=== PATIENT | female | born 1945 | race Caucasian/White ===

== ENCOUNTER 2016-08-31 06:42 | Inpatient (IN) | payer OTHER ==
[2016-08-01 10:07] VITALS: BMI 35.0
--- NOTE | 2016-08-01 10:43 | PAT Medication Instructions ---
Service Date August 01, 2016. Current Home Medication List Amlodipine (Norvasc), 5 MG PO QAM Atorvastatin (Lipitor), 40 MG PO QAM B-Complex Vitamins (Vitamin B Complex), 1 TAB PO QAM Bisoprolol Fumarate (Zebeta), 10 MG PO QAM Cholecalciferol (Vitamin D3), 1 TAB PO QAM Cholestyramine (Bulk) (Cholestyramine), 1 DOSE PO Q2D Citalopram Hydrobromide (Celexa), 40 MG PO HS Dicyclomine Hcl (Bentyl), 20 MG PO QID PRN for RN Lorazepam (Ativan), 1 MG PO PRN Losartan Potassium (Cozaar), 50 MG PO QAM Meloxicam (Mobic), 15 MG PO PRN Metformin Hcl (Glucophage), 500 MG PO QAM Omeprazole (Prilosec), 20 MG PO QAM Ranitidine (Zantac), 150 MG PO PRN [Celebrex], 1 DOSE PO UD [Ketoconazole 2% Sham], 1 DOSE TOP PRN Medication Instructions For Your Scheduled Surgery - Hold the following medications 48 hours prior to surgery: Metformin Hcl (Glucophage), 500 MG PO QAM - Hold the following medications 24 hours prior to surgery: [Ketoconazole 2% Sham], 1 DOSE TOP PRN - Hold the following medications the morning of surgery: B-Complex Vitamins (Vitamin B Complex), 1 TAB PO QAM Cholecalciferol (Vitamin D3), 1 TAB PO QAM Losartan Potassium (Cozaar), 50 MG PO QAM Dicyclomine Hcl (Bentyl), 20 MG PO QID PRN Cholestyramine (Bulk) (Cholestyramine), 1 DOSE PO Q2D Meloxicam (Mobic), 15 MG PO PRN [Celebrex], 1 DOSE PO UD - Take the following medications the morning of surgery with a sip of water OTHERWISE NOTHING TO EAT OR DRINK AFTER MIDNIGHT: Amlodipine (Norvasc), 5 MG PO QAM Atorvastatin (Lipitor), 40 MG PO QAM Bisoprolol Fumarate (Zebeta), 10 MG PO QAM Lorazepam (Ativan), 1 MG PO PRN Omeprazole (Prilosec), 20 MG PO QAM Ranitidine (Zantac), 150 MG PO PRN - Take the following medications as scheduled the night before surgery: Lorazepam (Ativan), 1 MG PO PRN Citalopram Hydrobromide (Celexa), 40 MG PO HS Dicyclomine Hcl (Bentyl), 20 MG PO QID PRN If you have any questions please call us at [phone] or [phone] or [phone]
--- NOTE | 2016-08-01 11:16 | DIAGNOSTIC IMAGING REPORT ---
CHEST PREADMISSION(PA/LAT) CLINICAL HISTORY: PAT preoperative evaluation COMPARISON STUDY: No previous studies for comparison. FINDINGS: The bones soft tissues and hemidiaphragms are normal. The cardiomediastinal silhouette is normal. The lungs are clear. The pulmonary vasculature is normal. IMPRESSION: Negative chest. Electronically signed by: Jorge Naik M.D. 08/01/2016 11:14 AM Dictated Date/Time: 08/01/2016 11:14 AM
[2016-08-01 11:18] LABS: URINE APPEARANCE CLEAR (CLEAR); URINE BILIRUBIN NEG (NEG); URINE COLOR DK YELLOW; URINE EPITHELIAL CELL AUTO >30 /lpf (0-5); URINE NITRITE NEG (NEG); URINE PH 5.5 (4.5-7.5); URINE SPECIFIC GRAVITY 1.026 (1.000-1.030); UROBILINOGEN NEG (NEG)
[2016-08-01 11:26] LABS: INR 0.9 (0.9-1.1); PARTIAL THROMBOPLASTIN RATIO 0.9; PROTHROMBIN TIME (PATIENT) 9.8 SECONDS (9.0-12.0)
[2016-08-01 11:33] LABS: MANUAL MICROSCOPIC REQUIRED? NO; REVIEW REQ? NO
--- NOTE | 2016-08-30 22:25 | HISTORY & PHYSICAL EXAMINATION ---
DATE OF ADMISSION: 08/31/2016 SUBJECTIVE CHIEF COMPLAINT: Right knee pain. HISTORY OF PRESENT ILLNESS: This is a patient who has been treated conservatively for right knee osteoarthritis. She has been treated with anti-inflammatory medications, physical therapy, bracing, corticosteroid injections and viscosupplement injections; however, she has failed all conservative management. She is now being set up for a right total knee arthroplasty. PAST MEDICAL HISTORY: Hypertension, diabetes, anxiety and depression, obesity, hyperlipidemia. ALLERGIES: DICLOFENAC AND COREG. PAST SURGICAL HISTORY: Shoulder surgery in 2013, partial hysterectomy in 1979 and a cholecystectomy. SOCIAL HISTORY: The patient denies tobacco use, has approximately 6 alcoholic drinks per week. FAMILY HISTORY: Noncontributory. CURRENT MEDICATIONS: Celexa 20 mg 1 p.o. daily, Ativan 1 mg 1 p.o. at bedtime p.r.n., Cozaar 50 mg 1 p.o. daily, metformin 500 mg 1 p.o. b.i.d., Zebeta 10 mg 1 p.o. daily, naproxen 500 mg 1 p.o. b.i.d., Zantac 150 mg 1 p.o. b.i.d., amlodipine 5 mg 1 p.o. daily, atorvastatin 40 mg 1 p.o. daily, dicyclomine 20 mg 1 p.o. q.i.d. p.r.n., Zyrtec 10 mg 1 p.o. daily, Vitamin D3 1000 units 2 p.o. daily, Astepro 0.15% nasal spray 2 sprays in each nostril daily, aspirin 81 mg 1 p.o. daily, Pataday 0.2% eyedrops 1 drop in each eye daily, valacyclovir 1 gram 2 tablets p.o. q. 12 hours as needed for cold sores, psorcon 0.05% topical cream apply to affected area b.i.d. p.r.n., Mobic 7.5 mg 1 p.o. daily. OBJECTIVE PHYSICAL EXAMINATION: GENERAL: The patient is alert and oriented x3. She is in no acute distress. She is a well-dressed, well-nourished 70-year-old female. Her affect is appropriate. CARDIOVASCULAR: Heart has a regular rhythm and rate without murmurs. LUNGS: Clear to auscultation bilateral. Dorsalis pedis, posterior tib pulse +2/4. Cap refill is less than 2 seconds. LYMPHATIC: No evidence of any swollen lymph nodes. MUSCULOSKELETAL: The patient has an antalgic gait favoring the right lower extremity. On inspection of the right lower extremity, the patient is noted to have swelling of the right knee. With palpation of the right knee, there is tenderness at the medial and lateral joint spaces. There is pain and crepitation noted with passive and active range of motion of the right knee. She has decreased range of motion secondary to pain. She also has decrease in strength right lower extremity secondary to pain. SKIN: There are no scars, rashes or ulcers noted. NEUROLOGIC: Sensation normal and intact distally. X-RAY EXAM: Multiple views of the right knee demonstrate severe tricompartmental osteoarthritis of the right knee with subchondral sclerosis and spurring. ASSESSMENT AND DIAGNOSIS: 1. Right knee osteoarthritis. PLAN: Above assessment was discussed with the patient. At this time, it was recommended the patient undergo a right knee total knee arthroplasty. All potential risks, benefits, complications, alternatives and rehab have been discussed with the patient. At this time, she wishes to proceed with the surgery as indicated. She will be scheduled for the surgery on 08/31/2016.
[~2016-08-31] VITALS: Ht 157.5 cm; Wt 87.0 kg
[2016-08-31] VITALS (8 sets, daily range): BP systolic 108–136; BP diastolic 66–76; PULSE 68–83; TEMP 36.4–36.8; O2SAT 95–98; Ht 157.5 cm; Wt 87.0 kg
[~2016-08-31 06:42] MED LIST: ACETAMINOPHEN 500 MG TAB PO SCH; AMLO-110 PO; ATOR-24 PO; ATV/1 PO; B-COTAB18 PO; BISO10TA PO; CEFAZOLIN 2000 MG/60 ML D5W IV SCH; CELEBREX PO; CHOL20007 PO; CHOLPOW PO; CITA40TA12 PO; CeleBREX 200 MG CAP PO SCH; DEXAMETHASONE 4 MG TAB PO SCH; DICY20TA35 PO; GABAPENTIN 300 MG CAP PO SCH; GLC/500 PO; KETOCONAZOLE 2% SHAM TOP; LACTATED RINGER'S 1000ML 1,000 ML IV SCH; LACTATED RINGER'S 1000ML 500 ML IV ONE; LOSA50TA6 PO; MELO7.5T5 PO; METOCLOPRAMIDE HCL 10 MG TAB PO SCH; PRLSR20 PO; ROPIVACAINE 5MG/ML 30 ML 150 MG, BUPIVACAINE/EPINEPHR 0.5% MPF 30 ML, KETOROLAC TROMETH... INFIL SCH; ZNTT/150 PO
[2016-08-31] MEDS ORDERED: MIDAZOLAM HCL 1 MG/ML 2ML VIAL ONE ×2 (06:59)
[2016-08-31] MEDS ORDERED: FENTANYL CITRATE INJ 50 MCG/1 ML 2 ML VIAL ONE (06:59)
[2016-08-31] MEDS ORDERED: NURSING VERBAL MED ORDER STA (07:30)
--- NOTE | 2016-08-31 07:31 | History & Physical Bridge Note ---
H&P Re-Evaluation Bridge Note: I have examined the patient, reviewed the History & Physical and in the interval since the performance of the History & Physical I have noted the following changes of clinical significance: No changes noted
[2016-08-31] MEDS ORDERED: BUPIVACAINE 0.25% 30 ML VIAL ONE (07:33)
[2016-08-31] MEDS ORDERED: BUPIVACAINE 0.5 % 5 MG/1 ML PF 10ML VIAL ONE (07:33)
[2016-08-31] MEDS ORDERED: HYDROmorphone INJ 1 MG/ML SYR IV PRN (07:45)
[2016-08-31] MEDS ORDERED: ONDANSETRON INJ 2 MG/ML 2 ML VIAL IV PRN ×2 (07:45→11:15)
[2016-08-31] MEDS ORDERED: ATROPINE SULFATE 0.1 MG/ML 5ML SYR IV PRN (07:45)
[2016-08-31] MEDS ORDERED: EpHEDrine SULFATE INJ 50 MG/ML AMP IV PRN (07:45)
[2016-08-31] MEDS ORDERED: ORTHO JOINT ANESTHETIC ONE (08:00)
[2016-08-31] MEDS ORDERED: POVIDONE-IODINE OP SOLN 30 ML BTL ONE (08:00)
[2016-08-31] MEDS ORDERED: TRANEXAMIC ACID INJ 1,000 MG in SODIUM CHLORIDE 0.9% 100ML 100 ML IV SCH (08:00)
[2016-08-31] MEDS ORDERED: BACITRACIN 50000 UNIT VIAL ONE (08:00)
[2016-08-31] MEDS ORDERED: DICYCLOMINE HCL 20 MG TAB PO PRN (08:45)
[2016-08-31] MEDS ORDERED: METFORMIN HCL 500 MG TAB PO SCH (09:00)
[2016-08-31] MEDS ORDERED: PROPOFOL IV EMULSION 10 MG/ML 20 ML VIAL IV ONE ×2 (09:34→10:10)
[2016-08-31] MEDS ORDERED: EpHEDrine SULFATE INJ 50 MG/ML AMP ONE (09:35)
--- NOTE | 2016-08-31 10:42 | [facility] Post Operative Brief Note ---
Immediate Operative Summary Operative Date Aug 31, 2016. Pre-Operative Diagnosis Right Knee Osteoarthritis, DJD Right Knee, Genu Varum Post-Operative Diagnosis Right Knee Osteoarthritis, DJD Right Knee, Genu Varum, LCL contracture Procedure(s) Performed Right Cemented Reilly and Nephew Total Knee Arthroplasty; Fractional Lengthening Lateral Collateral Ligament Surgeon Dr. Magaña Fine Patcher Surgeon(s) Mejia Mariscal PA-C Estimated Blood Loss 40 mL Findings See Dict Specimens A: Right Knee Bone and Tissue Drains Hemovac Anesthesia Spinal w/ sedation, Adductor canal block, Intraarticular Joint Injection Complication(s) None Disposition Recovery Room / PACU
--- NOTE | 2016-08-31 11:06 | OPERATIVE REPORT ---
DATE OF OPERATION: 08/31/2016 PREOPERATIVE DIAGNOSES: 1. Degenerative joint disease of the right knee. 2. Osteoarthritis, right knee. 3. Genu varum. POSTOPERATIVE DIAGNOSES: Same in addition to contracture of the lateral collateral ligament of the right knee. PROCEDURES: 1. Right cemented Reilly & Nephew total knee arthroplasty using a size 3 femur, size 3 tibia, 12 mm posterior stabilized polyethylene and a 32 mm patella. 2. Fractional lengthening of the lateral collateral ligament of the knee. SURGEON: Dr. Magaña. STEEL ERECTING PUSHER: Mejia Mariscal PA-C who was present for patient positioning, sterile prep and drape, management of retractors and instruments. He was present through the critical portions of the case including wound closure, application of sterile dressing and transport of the patient to recovery. ANESTHESIA: Spinal with sedation, adductor canal block and intraarticular joint injection. SPECIMENS: Bone and tissue from right knee. DRAINS: Hemovac. COMPLICATIONS: None. BLOOD LOSS: 40 mL. PERTINENT HISTORY: This is a 70-year-old female with chronic progressive ongoing symptoms consistent with degenerative joint disease. She attempted and failed conservative measures including anti-inflammatories, rest, intraarticular steroid injections, home exercises, observation, use of an assistive device and shoe wear modification. She had radiographs which demonstrated bone on bone arthropathy, marginal osteophytes, subchondral sclerosis and subchondral cysts. The patient is scheduled for elective total knee arthroplasty as indicated. All potential risks, benefits, complications, alternatives, rehab, potential for incomplete relief of symptoms, need for further surgery, DVT, PE, , persistent pain, swelling, scarring, weakness, neurovascular injury, wound compromise and failure of the hardware or bone fracture was discussed with the patient. The patient decided to proceed with the procedure as indicated. OPERATION AND FINDINGS: PROCEDURE: The patient was taken to the operative suite and placed supine on the operating table after spinal epidural was initiated. Next, tourniquet was placed high on the right thigh over cast padding and the patient was sedated. The right lower extremity was then sterilely prepped and draped in the usual fashion. It was elevated and exsanguinated with an Esmarch bandage and tourniquet inflated to 350 mmHg. Next, a 10-blade scalpel incision was made along the anterior midline of the right knee with incision deep through the subcutaneous tissue. Meticulous hemostasis was utilized with electrocautery. Full thickness skin flaps were developed both medially and laterally and 10-blade scalpel was used to make a medial parapatellar incision in the capsule and extensor. The patella was everted and soft tissue releases were performed. The medial collateral was noted to be slightly tight so this was partially released using pie-crusting technique and the Remy elevator was placed from the posterior aspect of the capsule releasing any contracture. Next, the patella was everted and resurfaced using the sagittal saw and orthogonal cuts. After caliper measured 23 mm, residual patella was approximately 15 mm and 32 mm button trial was drilled and then trialed. Next, the appropriate retractors were placed and the femoral patient matched cutting block was pinned to the distal aspect of the femur. The distal femoral cut was made and pinned with pins and the distal femoral cutting guide was removed. The 4-in-1 cutting block was then pinned in place and anterior, posterior, anterior chamfer, and posterior chamfer cuts were made. Block and bone fragments were then removed followed by exposure of the proximal tibia. Sharp Hohmann was used to place just posterior to the tibia to protract it. Medial and lateral sharp Hohmann's were placed to protect the soft tissue and the tibial cutting block was then pinned in place. Tibial alignment terrell was utilized to confirm alignment and the proximal tibia was then cut made with sagittal saw. Fragment was removed. The size 8 tibial trial was pinned in place and circumferential proximal release was performed with electrocautery around the proximal tibia. Next, the femoral trial was placed within appropriate medial and lateral alignment and then the cutting block was then put into place. It was reamed and box cut was performed. Excess debris was removed from the femoral notch. The insert was placed into the distal aspect of the femur. Trial poly size 12 mm was placed in the proximal tibia. The knee was reduced. Trial poly size 32 mm was placed in the patella. The knee was reduced. The lateral collateral ligament was noted to be contracted both in extension and flexion. Therefore, a fractional lengthening was performed with an 18 gauge spinal needle which was used to make multiple small passes of the spinal needle through the lateral collateral ligament to perform a progressive fractional lengthening until the knee joint was balanced. Next, a 12 mm posterior stabilized polyethylene was then inserted and the knee was noted to be balanced both in flexion and extension with no evidence of mid flexion instability. Excellent alignment and range of motion was achieved with correction of the genu varum and flexion contracture was achieved. Next, all components were removed. The Orthomix was injected into the posterior capsule, anterior aspect of the capsule and throughout the knee. Next, the wound was lavaged with pulsatile lavage and all surfaces were suctioned and dried. Palacos-G cement was placed in the distal femur, proximal tibia, patella, and then a small amount was placed in the canal of the tibia. All implants were impacted into place in a stable fashion. Excess cement was removed from the joint. The patellar button was cemented and clamped in place. A soultion of dilute betadine was used to soak the incision and components for 2 minutes and then suctioned. After sufficient drying time elapsed a 10-Slovenian double lumen Hemovac drain was placed in the anterolateral aspect of the knee. The extensor mechanism was closed using interrupted #1 Vicryl. The dermis was closed using buried interrupted 2-0 Vicryl. The skin was closed with skin sharlene. Sterile compressive dressing from the toes to the groin was applied. The tourniquet was released. The patient was awakened and taken to the recovery room in stable condition. I attest to the content of the Intraoperative Record and any orders documented therein. Any exceptions are noted below. DEYANIRA
--- NOTE | 2016-08-31 11:13 | Discharge Instructions ---
Discharge Instructions Date of Service Aug 31, 2016. Admission Reason for Admission: Right Knee Osteoarthritis Discharge Discharge Diagnosis / Problem: right knee osteoarthritis Discharge Goals Goal(s): Decrease discomfort, Improve function Activity Recommendations Activity Limitations: per Instructions/Follow-up section Weightbearing Status: Right weightbearing (as tolerated) . Instructions / Follow-Up Instructions / Follow-Up ACTIVITY RECOMMENDATIONS: SELF CARE INSTRUCTIONS AFTER TOTAL KNEE REPLACEMENT A. You may need to continue a physical therapy program after discharge from the hospital. There are several options available to you. Your doctor will assist you in selecting the best one for you. 1. An out-patient facility 2 to 3 times a week for therapy or home therapy. 2. Continue working on all exercises taught to you in the hospital. Your goals should be to increase bending of your knee to 90 degrees and beyond and to fully straighten your knee. B. You may progress at your own pace from walking with a walker or crutches to a cane; then to no assistive devices. C. Make walking a part of your daily routine. Be up as much as comfortable with rest periods throughout the day. Rest with leg elevation is very important. Use the ice wrap frequently for the first 3-4 weeks. D. There are no restrictions on activities. You may ride in a car, shop, participate in freelance patternmaker and all social activities. E. Wear the long elastic stockings (MARY hose) 20 hours a day for one month after surgery. They can be removed several times a day for laundering and for a bath. F. Silverlon- This is a large adhesive bandage that contains silver ions. This helps your incision heal by fighting off bacteria and protecting it from the outside environment. You are permitted to shower with this dressing. This will remain on your incision for 7 days and then should be removed. Some visible blood or drainage through the dressing window is normal. If there is significant drainage or leaking noted before the 7 days notify your doctor's office immediately. Once removed, keep incision clean and dry. If there is any drainage or redness noted, please call your surgeon. SPECIAL CARE INSTRUCTIONS: VERY IMPORTANT TO READ AND REVIEW A. Take Aspirin (blood thinning medications) as directed by your doctor. If on Coumadin, have a pro-time (blood test) drawn according to your doctor's instructions. This will tell the doctor how well the Coumadin is thinning your blood. B. There are a few signs you need to watch for after you are home. Call [facility] if you notice any of the followin. Increased severe knee pain. Some pain is expected especially when you exercise. 2. Increased swelling in your leg or knee; pain or swelling of the calf muscle in either lower leg. 3. Any fluid drainage from the incision. 4. Shortness of breath or chest pain. C. Please call [facility] at if you have any concerns or questions about your operation or recovery. The doctor or his nurse will return your call promptly. D. You must take antibiotics before dental work, bladder, bowel or other surgery. Your doctor will provide you with a permanent care to carry describing this precaution. * CALL IF INCREASED PAIN, REDNESS, DRAINAGE OR FEVER GREATER THAT 101 F. * WEAR MARY HOSE 20 HOURS PER DAY FOR 4 WEEKS. FOLLOW UP VISIT: If appointment is not already scheduled: Please call [facility] to make a follow-up appointment for 2 weeks after your surgery to have sharlene removed at . Current Hospital Diet Patient's current hospital diet: Regular Diet Discharge Diet Recommended Diet: Regular Diet Procedures Procedures Performed: Right Cemented Reilly and Nephew Total Knee Arthroplasty; Fractional Lengthening Lateral Collateral Ligament Pending Studies Studies pending at discharge: no Medical Emergencies . Who to Call and When: Medical Emergencies: If at any time you feel your situation is an emergency, please call 911 immediately. . Non-Emergent Contact Non-Emergency issues call your: Surgeon Call Non-Emergent contact if: temperature is above 101, your pain is not controlled, your pain is worsening, wound has increased drainage, wound has increased redness, wound has increased pain . "Provider Documentation" section prepared by Mejia Mariscal. . VTE Core Measure Inpt VTE Proph given/why not?: Other Anticoagulation, T.E.D. Stockings, SCD's
[2016-08-31] MEDS ORDERED: MAGNESIUM HYDROXIDE SUSP 30 ML UDC PO PRN (11:15)
[2016-08-31] MEDS ORDERED: ALUMINUM/MAGNESIUM/SIMETH (MAALOX MAX) 30 ML UDC PO PRN (11:15)
[2016-08-31] MEDS ORDERED: BISACODYL 10 MG SUPP PR PRN (11:15)
[2016-08-31] MEDS ORDERED: ZOLPIDEM TARTRATE 5 MG TAB PO PRN (11:15)
[2016-08-31] MEDS ORDERED: MoRPHine SULFATE 2 MG/ML CARP IV PRN (11:15)
[2016-08-31] MEDS ORDERED: SOD PHOSPHATE/SOD BIPHOSPHATE ENEMA 132 ML BTL PR PRN (11:15)
--- NOTE | 2016-08-31 11:43 | DIAGNOSTIC IMAGING REPORT ---
RIGHT KNEE 1 OR 2 VIEWS ROUTINE CLINICAL HISTORY: Postoperative evaluation. COMPARISON: None FINDINGS: Alignment of the total right knee arthroplasty is anatomic. There is no fracture or unexpected radiopaque foreign body. Drains and skin sharlene are present. IMPRESSION: Expected findings following total right knee arthroplasty. Electronically signed by: Faizan Garcia M.D. 08/31/2016 11:42 AM Dictated Date/Time: 08/31/2016 11:42 AM
--- NOTE | 2016-08-31 11:57 | Anesthesiology Progress Note ---
Anesthesia Post Op Note Date & Time Aug 31, 2016 at 11:57 Vital Signs Pain Intensity: 0 Vital Signs Past 12 Hours Date Time Temp Pulse Resp B/P (MAP) Pulse Ox O2 Delivery O2 Flow Rate FiO2 08/31/16 11:45 79 15 120/62 97 Nasal Cannula 2 08/31/16 11:35 36.6 86 13 126/64 97 Nasal Cannula 2 08/31/16 11:25 85 19 108/62 98 Nasal Cannula 2 08/31/16 11:15 83 14 118/65 96 Nasal Cannula 2 08/31/16 11:06 36.4 90 20 132/64 96 Nasal Cannula 2 08/31/16 07:10 36.8 68 18 136/67 97 Room Air Notes Mental Status: alert / awake / arousable, participated in evaluation Pt Amnestic to Procedure: Yes Nausea / Vomiting: adequately controlled Pain: adequately controlled Airway Patency, RR, SpO2: stable & adequate BP & HR: stable & adequate Hydration State: stable & adequate Anesthetic Complications: no major complications apparent
[2016-08-31] MEDS: D5W AND 1/2NSS + 20MEQ KCL 1,000 ML IV SCH ×2 (13:54→23:47)
[2016-08-31] MEDS ORDERED: GLUCOSE 10 TABS/TUBE PO PRN (14:00)
[2016-08-31] MEDS ORDERED: GLUCAGON FOR INJ 1 MG VIAL SQ PRN (14:00)
[2016-08-31] MEDS ORDERED: DEXTROSE 50% 50 ML SYR IV PRN (14:00)
[2016-08-31] MEDS ORDERED: GLUCOSE 40% GEL 15 GM TUBE PO PRN (14:00)
[2016-08-31] MEDS ORDERED: NURSING VERBAL MED ORDER ONE (14:15)
[2016-08-31] MEDS: KETOROLAC TROMETHAMINE 15 MG/ML VIAL IV. SCH ×2 (14:16→20:11)
[2016-08-31] MEDS: ACETAMINOPHEN 500 MG TAB PO SCH ×2 (14:16→21:12)
[2016-08-31] MEDS ORDERED: LORAZEPAM 1 MG TAB PO PRN (14:45)
[2016-08-31] MEDS ORDERED: RANITIDINE HCL 150 MG TAB PO PRN (15:30)
[2016-08-31] MEDS: CEFAZOLIN IV 2,000 MG in DEXTROSE 5% 50ML 50 ML IV SCH ×2 (16:29→23:48)
[2016-08-31] MEDS: INSULIN ASPART 100 UNITS/ML 3 ML PEN SC SCH ×2 (17:44→21:20)
[2016-08-31] MEDS: OXYCODONE HCL 10 MG TABCR (OXYCONTIN) PO SCH (21:11)
[2016-08-31] MEDS: CITALOPRAM 40 MG TAB PO SCH (21:12)
[2016-08-31] MEDS: ASPIRIN 81 MG ECTAB PO SCH (21:42)
[2016-08-31] MEDS: SENNA 8.6 MG TAB PO SCH (21:42)
[2016-08-31] MEDS: DOCUSATE SODIUM 100 MG CAP PO SCH (21:43)
--- NOTE | 2016-08-31 23:45 | Medical Consult ---
Consultation Date of Consultation: Aug 31, 2016. Attending Physician: Rock Magaña D.O. Reason for Consultation: post-op medical management History of Present Illness 70 yo F who failed conservative therapy for right knee OA presents today for elective right total knee arthroplasty. She tolerated the procedure well with no pain or nausea, and just had lunch. She denies any numbness in her foot and is overall doing well. Medications were reviewed as well as procedures for insulin use post-operatively and she verbalized understanding. Past Medical/Surgical History Medical Problems: (1) Anxiety and depression Status: Chronic (2) DMII (diabetes mellitus, type 2) Status: Chronic (3) GERD (gastroesophageal reflux disease) Status: Chronic (4) HTN (hypertension) Status: Chronic (5) Hyperlipidemia Status: Chronic (6) IBS (irritable bowel syndrome) Status: Chronic (7) Obesity (BMI 30-39.9) Status: Chronic (8) Osteoarthritis of right knee Status: Chronic Surgical Problems: (1) H/O shoulder surgery Status: Chronic (2) History of cholecystectomy Status: Chronic (3) History of tonsillectomy and adenoidectomy Status: Chronic (4) S/P JORDY (total abdominal hysterectomy) Status: Chronic Family History Cancer of larynx FATHER FH: CAD (coronary artery disease) MOTHER (83 yrs) Social History Smoking Status: Never Smoker Smokeless Tobacco Use: No Alcohol Use: none Drug Use: none Marital Status: Housing Status: lives with significant other Occupation Status: retired Allergies Coded Allergies: Carvedilol (Verified Allergy, Unknown, HIVES, 08/31/16) Diclofenac (Verified Allergy, Unknown, per PCP records -- takes meloxicam at home, 08/31/16) Home Medications Active Reported [Celebrex] 1 Dose PO UD NEW RX-HASN'T FILLED YET Bentyl (Dicyclomine Hcl) 20 Mg Tab 20 Mg PO QID PRN Mobic (Meloxicam) 7.5 Mg Tab 15 Mg PO PRN [Ketoconazole 2% Sham] 1 Dose TOP PRN Cozaar (Losartan Potassium) 50 Mg Tab 50 Mg PO QAM Norvasc (Amlodipine Besylate) 5 Mg Tab 5 Mg PO QAM Prilosec (Omeprazole) 20 Mg Capcr 20 Mg PO QAM Zantac (Ranitidine HCl) 150 Mg Tab 150 Mg PO PRN Celexa (Citalopram Hydrobromide) 40 Mg Tab 40 Mg PO HS Ativan (Lorazepam) 1 Mg Tab 1 Mg PO PRN Vitamin B Complex (B-Complex Vitamins) 1 Tab Tab 1 Tab PO QAM Vitamin D3 (Cholecalciferol) 2,000 Unit Tab 1 Tab PO QAM 90 Days Lipitor (Atorvastatin Calcium) 40 Mg Tab 40 Mg PO QAM Zebeta (Bisoprolol Fumarate) 10 Mg Tab 10 Mg PO QAM Cholestyramine (Cholestyramine (Bulk)) 1 Pow Pow 1 Dose PO Q2D AM Glucophage (Metformin Hcl) 500 Mg Tab 500 Mg PO QAM Current Inpatient Medications Current Inpatient Medications Medications (Trade) Dose Ordered Sig/Sully Route Start Time Stop Time Status Last Admin Dose Admin Amlodipine Besylate (Norvasc Tab) 5 mg QAM PO 09/01/16 09:00 10/01/16 08:59 Atorvastatin Calcium (Lipitor Tab) 40 mg QAM PO 09/01/16 09:00 10/01/16 08:59 Citalopram Hydrobromide (celeXA TAB) 40 mg HS PO 08/31/16 21:00 09/30/16 20:59 Dicyclomine HCl (Bentyl Tab) 20 mg QID PRN PO 08/31/16 08:45 09/30/16 08:44 Miscellaneous Information (Order Awaiting Action) 1 ea QS N/A 08/31/16 16:00 09/30/16 15:59 Losartan Potassium (coZAAR TAB) 50 mg QAM PO 09/01/16 09:00 10/01/16 08:59 Miscellaneous Information (Order Awaiting Action) 1 ea QS N/A 08/31/16 16:00 09/30/16 15:59 Vitamin B Complex (Vitamin B Complex) 1 tab DAILY PO 09/01/16 09:00 10/01/16 08:59 Bisoprolol Fumarate (Bisoprolol Fumarate) 10 mg QAM PO 09/01/16 09:00 10/01/16 08:59 Cholecalciferol (Vitamin D Tab) 2,000 inter.unit QAM PO 09/01/16 09:00 10/01/16 08:59 Cholestyramine Resin (Questran Powder Light) 4 gm Q2D@0900 PO 09/01/16 09:00 10/01/16 08:59 Pantoprazole Sodium (Protonix Tab) 40 mg QAM PO 09/01/16 09:00 10/01/16 08:59 Miscellaneous Information (Order Awaiting Action) 1 ea QS N/A 08/31/16 16:00 09/30/16 15:59 Potassium Chloride/Dextrose/ Sod Cl 1,000 ml @ 100 mls/hr Q10H IV 08/31/16 13:30 09/01/16 11:03 08/31/16 13:54 100 MLS/HR Cefazolin Sodium 2000 mg/Dextrose 60 ml @ 100 mls/hr Q8H IV 08/31/16 16:00 09/01/16 00:35 Ketorolac Tromethamine (Toradol Inj) 15 mg Q6H IV. 08/31/16 14:00 09/01/16 11:14 Celecoxib (CeleBREX CAP) 200 mg BID PO 09/01/16 21:00 10/01/16 20:59 Oxycodone HCl (Roxicodone Immediate Rel Tab) 1 TABLET FOR PAIN RATING... Q4H PRN PO 08/31/16 11:15 09/14/16 11:14 Oxycodone HCl (Oxycontin Tab) 10 mg Q12 PO 08/31/16 21:00 09/14/16 20:59 Morphine Sulfate (MoRPHine SULFATE INJ) 2 mg Q1HWA PRN IV 08/31/16 11:15 09/14/16 11:14 Acetaminophen (Tylenol Tab) 1,000 mg Q8H PO 08/31/16 14:00 09/30/16 11:14 Magnesium Hydroxide (Milk Of Magnesia Susp) 30 ml Q6H PRN PO 08/31/16 11:15 09/30/16 11:14 Bisacodyl (Dulcolax Supp) 10 mg DAILY PRN NH 08/31/16 11:15 09/30/16 11:14 Sodium Biphosphate/ Sodium Phosphate (Fleet Enema) 132 ml DAILY PRN NH 08/31/16 11:15 09/30/16 11:14 Senna (Senokot Tab) 17.2 mg HS PO 08/31/16 21:00 09/30/16 20:59 Docusate Sodium (coLACE CAP) 100 mg BID PO 08/31/16 21:00 09/30/16 20:59 Diphenhydramine HCl (Benadryl Cap) 25 mg Q8H PRN PO 08/31/16 11:15 09/30/16 11:14 Al Hydrox/Mg Hydrox/Simethicone (Maalox Max Susp) 15 ml Q4H PRN PO 08/31/16 11:15 09/30/16 11:14 Zolpidem Tartrate (Ambien Tab) 5 mg HSZ PRN PO 08/31/16 11:15 09/30/16 11:14 Multivitamins (Multivitamin Tab) 1 tab QAM PO 09/01/16 09:00 10/01/16 08:59 Ondansetron HCl (Zofran Inj) 4 mg Q6H PRN IV 08/31/16 11:15 09/30/16 11:14 Dexamethasone Sodium Phosphate 10 mg/Syringe 2.5 ml @ 1 mls/min TODAY@0730 IV 09/01/16 07:30 09/01/16 07:33 Aspirin (Ecotrin Tab) 81 mg BID PO 08/31/16 21:00 09/30/16 20:59 Review of Systems Ten systems were reviewed and negative except as indicated in HPI. Physical Exam Date Time Temp Pulse Resp B/P (MAP) Pulse Ox O2 Delivery O2 Flow Rate FiO2 08/31/16 13:04 36.8 81 18 119/72 (88) 97 Nasal Cannula 2.0 08/31/16 12:32 36.4 81 17 116/67 (83) 98 Room Air 08/31/16 12:00 96 Nasal Cannula 2.0 08/31/16 12:00 96 Nasal Cannula 2.0 08/31/16 12:00 36.6 83 16 126/76 (93) 96 Nasal Cannula 2.0 08/31/16 11:45 79 15 120/62 97 Nasal Cannula 2 08/31/16 11:35 36.6 86 13 126/64 97 Nasal Cannula 2 08/31/16 11:25 85 19 108/62 98 Nasal Cannula 2 08/31/16 11:15 83 14 118/65 96 Nasal Cannula 2 08/31/16 11:06 36.4 90 20 132/64 96 Nasal Cannula 2 08/31/16 07:10 36.8 68 18 136/67 97 Room Air GEN: WNWD, in no acute distress, alert and appropriate HEENT: NC/AT, pupils equal and round, normal sclerae/conjunctivae, MMM NECK: small biopsy site well-healed at base of right neck. CARDIO: reg rate, S1/2 heard without m/g/r LUNGS: CTA bilaterally, no crackles, rales or wheezes, good diaphragmatic excursion ABD: soft, non-tender, non-distended, no rebound or guarding, +BS EXTREMITY: RP and DP palpable 2+ bilat, no LE swelling or edema, extremities are warm and well-perfused, deonna wrap to right knee, drain in place/ice pack over wrap, R leg NVI NEURO: CN 2-12 grossly intact, sensation intact throughout MUSC: 5/5 strength throughout, no focal deficits SKIN: warm and dry Laboratory Results Test 08/01/16 00:00 08/01/16 10:51 08/31/16 07:30 08/31/16 20:52 Urine Color DK YELLOW Urine Appearance CLEAR (CLEAR) Urine pH 5.5 (4.5-7.5) Urine Specific [place] 1.026 (1.000-1.030) Urine Protein NEG (NEG) Urine Glucose (UA) NEG (NEG) Urine Ketones TRACE (NEG) Urine Occult Blood NEG (NEG) Urine Nitrite NEG (NEG) Urine Bilirubin NEG (NEG) Urine Urobilinogen NEG (NEG) Urine Leukocyte Esterase SMALL (NEG) Urine WBC (Auto) 5-10 /hpf (0-5) Urine RBC (Auto) 0-4 /hpf (0-4) Urine Hyaline Casts (Auto) 5-10 /lpf (0-5) Urine Epithelial Cells (Auto) >30 /lpf (0-5) Urine Bacteria (Auto) NEG (NEG) Prothrombin Time 9.8 SECONDS (9.0-12.0) Prothromb Time International Ratio 0.9 (0.9-1.1) Activated Partial Thromboplast Time 24.0 SECONDS (21.0-31.0) Partial Thromboplastin Ratio 0.9 Albumin 3.5 gm/dl (3.4-5.0) Bedside Glucose 150 mg/dl (70-90) Last 24 Hours Test 08/31/16 07:07 08/31/16 07:30 08/31/16 11:11 Bedside Glucose 114 mg/dl 139 mg/dl Albumin 3.5 gm/dl Assessment & Plan 70 yo F with MMPs s/p knee surgery; IM consult for medical management 1. s/p R total knee arthroscopy -POD 0; surgery performed by Dr. Magaña -post-operative pain well managed -monitor for acute blood loss with daily H&H -pt encouraged to utilize spirometry to prevent post-op infection -PT/OT -activity and wound care orders per ortho protocol -will continue to follow 2. HTN-controlled, cont Cozaar 50, Bisoprolol 10, and good post-op pain control 3. Depression-cont Celexa and PRN Ativan 4. GERD-cont protonix and PRN ranitidine 5. Metabolic syndrome-ISS with carb coverage while off the metformin. This is in an effort to keep sugars tightly regulated for better healing post-op. Plan to transfer her back on metformin when she is discharged. DVT Prophylaxis: ASA 81 BID per Ortho (no h/o post-op DVT in the past) FULL CODE Dispo-per Ortho Thank you for this consultation. We will follow the patient with you during their hospital stay. You can reach a member of the [facility] Hospitalist Team 22/10 via pager @ [phone]. Paulette Leong, [facility] Center[facility]
[2016-09-01] MEDS: KETOROLAC TROMETHAMINE 15 MG/ML VIAL IV. SCH ×2 (02:03→08:13)
[2016-09-01 03:15] VITALS: BP 113/65; PULSE 75; TEMP 36.6; O2SAT 96
[2016-09-01] MEDS: ACETAMINOPHEN 500 MG TAB PO SCH ×3 (05:32→21:18)
[2016-09-01 05:53] LABS: HEMATOCRIT 35.9 % (37-47); MEAN CELL VOLUME 92.5 fL (80-100); MEAN CORPUSCULAR HEMOGLOBIN 30.7 pg (25-34); MEAN CORPUSCULAR HGB CONC 33.1 g/dl (32-36); MEAN PLATELET VOLUME 10.4 fL (7.4-10.4); PLATELET COUNT 166 K/uL (130-400); RED BLOOD COUNT 3.88 M/uL (4.2-5.4); WHITE BLOOD COUNT 13.47 K/uL (4.8-10.8)
[2016-09-01 06:24] LABS: BUN/CREATININE RATIO 14.8 (10-20); CALCIUM 8.6 mg/dl (8.5-10.1); CREATININE 0.89 mg/dl (0.60-1.20); POTASSIUM 5.5 mmol/L (3.5-5.1)
[2016-09-01] MEDS: OXYCODONE HCL IR 5 MG TAB (IMMEDIATE RELEASE) PO PRN ×3 (06:29→18:44)
[2016-09-01] MEDS ORDERED: DEXAMETHASONE INJ 10 MG in SYRINGE 0 ML IV SCH (07:30)
--- NOTE | 2016-09-01 07:50 | Orthopedic Progress Note ---
Orthopedic Progress Note Date of Service Sep 01, 2016. Subjective Post OP Day: 1 Reports: feeling well Objective N/V intact, dressing C/D/I (Hemovac in place), toes mobile (mild footdrop noted on operative side) Date Time Temp Pulse Resp B/P (MAP) Pulse Ox O2 Delivery O2 Flow Rate FiO2 09/01/16 03:15 36.6 75 16 113/65 (81) 96 Room Air 08/31/16 23:50 Room Air 08/31/16 22:55 36.7 82 16 122/69 (86) 95 Room Air 08/31/16 19:37 36.8 74 16 108/68 (81) 95 Room Air 08/31/16 16:20 Nasal Cannula 1.0 08/31/16 14:56 72 16 113/66 (82) 95 08/31/16 14:01 36.5 73 16 122/68 (86) 97 Nasal Cannula 2.0 08/31/16 13:04 36.8 81 18 119/72 (88) 97 Nasal Cannula 2.0 08/31/16 12:32 36.4 81 17 116/67 (83) 98 Room Air 08/31/16 12:00 96 Nasal Cannula 2.0 08/31/16 12:00 96 Nasal Cannula 2.0 08/31/16 12:00 36.6 83 16 126/76 (93) 96 Nasal Cannula 2.0 08/31/16 11:45 79 15 120/62 97 Nasal Cannula 2 08/31/16 11:35 36.6 86 13 126/64 97 Nasal Cannula 2 08/31/16 11:25 85 19 108/62 98 Nasal Cannula 2 08/31/16 11:15 83 14 118/65 96 Nasal Cannula 2 08/31/16 11:06 36.4 90 20 132/64 96 Nasal Cannula 2 Laboratory Results 24 Hours: Test 09/01/16 05:15 Hematocrit 35.9 % Hemoglobin 11.9 g/dL Assessment & Plan Assessment: 70 yo female stable POD #1 s/p right TKA, mild footdrop Plan: 1. Med management 2. DVT prophylaxis- ASA, TEDs, SCDs 3. PT/OT 4. D/C planning- home w/ HH
[2016-09-01 08:18] VITALS: BP 112/70; PULSE 67; TEMP 36.8; O2SAT 96
[2016-09-01 08:36] VITALS: O2SAT 96
[2016-09-01] MEDS ORDERED: CHOLESTYRAMINE LIGHT 4 GM PKT PO SCH (09:00)
[2016-09-01] MEDS: ASPIRIN 81 MG ECTAB PO SCH ×2 (09:19→21:22)
[2016-09-01] MEDS: PANTOprazole SOD 40 MG TAB PO SCH (09:20)
[2016-09-01] MEDS: BISOPROLOL FUMARATE 10 MG TAB PO SCH (09:20)
[2016-09-01] MEDS: AMLODIPINE BESYLATE 5 MG TAB PO SCH (09:20)
[2016-09-01] MEDS: ATORVASTATIN 20 MG TAB PO SCH (09:20)
[2016-09-01] MEDS: VITAMIN B COMPLEX TAB PO SCH (09:21)
[2016-09-01] MEDS: CHOLECALCIFEROL 1000 INTER.UNIT TAB PO SCH (09:21)
[2016-09-01] MEDS: DOCUSATE SODIUM 100 MG CAP PO SCH ×2 (09:21→19:06)
[2016-09-01] MEDS: LOSARTAN POTASSIUM 50 MG TAB PO SCH (09:22)
[2016-09-01] MEDS: INSULIN ASPART 100 UNITS/ML 3 ML PEN SC SCH ×4 (09:29→21:00)
[2016-09-01] MEDS: OXYCODONE HCL 10 MG TABCR (OXYCONTIN) PO SCH ×2 (09:31→21:17)
--- NOTE | 2016-09-01 10:32 | Progress Note ---
Internal Med Progress Note Date of Service: Sep 01, 2016. Provider Documentation: SUBJECTIVE: The patient was seen and examined Denies any symptoms Has some pain in right knee OBJECTIVE: Vital Signs-as noted below Exam: General-no distress at rest Eyes-normal ENT-normal Neck-supple Lungs-Clear to auscultate bilaterally Heart-Regular,no murmur appreciated Abdomen-Benign,no masses,bowel sound present Extremities-Trace edema on right Right Knee is bandaged Neuro-AAox3 Lab data as noted below. ASSESSMENT & PLAN: s/p R total knee arthroscopy -POD 1: surgery performed by Dr. Magaña -activity and wound care orders per ortho protocol High Potassium Is on IVF with K Discontinued Recheck at 1700 HTN-controlled, cont Cozaar 50, Bisoprolol 10, and good post-op pain control Remains controlled Depression-cont Celexa and PRN Ativan GERD-cont protonix and PRN ranitidine Metabolic syndrome-ISS with carb coverage while off the metformin. SSI DVT Prophylaxis: ASA 81 BID per Ortho (no h/o post-op DVT in the past) FULL CODE Dispo-per Ortho Medically stable Vital Signs: Date Time Temp Pulse Resp B/P (MAP) Pulse Ox O2 Delivery O2 Flow Rate FiO2 09/01/16 15:45 Room Air 09/01/16 15:06 36.7 70 15 120/80 (93) 97 Room Air 09/01/16 11:40 36.7 68 16 122/80 (94) 97 Room Air 09/01/16 08:36 96 Room Air 09/01/16 08:18 36.8 67 14 112/70 (84) 96 Room Air 09/01/16 03:15 36.6 75 16 113/65 (81) 96 Room Air 08/31/16 23:50 Room Air 08/31/16 22:55 36.7 82 16 122/69 (86) 95 Room Air 08/31/16 19:37 36.8 74 16 108/68 (81) 95 Room Air Lab Results: Results Past 24 Hours Test 08/31/16 17:07 08/31/16 20:52 09/01/16 05:15 09/01/16 08:14 Range/Units Bedside Glucose 202 150 141 70-90 mg/dl White Blood Count 13.47 4.8-10.8 K/uL Red Blood Count 3.88 4.2-5.4 M/uL Hemoglobin 11.9 12.0-16.0 g/dL Hematocrit 35.9 37-47 % Mean Corpuscular Volume 92.5 80-100 fL Mean Corpuscular Hemoglobin 30.7 25-34 pg Mean Corpuscular Hemoglobin Concent 33.1 32-36 g/dl RDW Standard Deviation 44.0 36.4-46.3 fL RDW Coefficient of Variation 13.1 11.5-14.5 % Platelet Count 166 130-400 K/uL Mean Platelet Volume 10.4 7.4-10.4 fL Sodium Level 143 136-145 mmol/L Potassium Level 5.5 3.5-5.1 mmol/L Chloride Level 109 98-107 mmol/L Carbon Dioxide Level 30 21-32 mmol/L Anion Gap 4.0 3-11 mmol/L Blood Urea Nitrogen 13 7-18 mg/dl Creatinine 0.89 0.60-1.20 mg/dl Est Creatinine Clear Calc Drug Dose 62.0 ml/min Estimated GFR () 77.2 Estimated GFR (Non- 66.6 BUN/Creatinine Ratio 14.8 10-20 Random Glucose 175 70-99 mg/dl Calcium Level 8.6 8.5-10.1 mg/dl Test 09/01/16 12:31 Range/Units Bedside Glucose 134 70-90 mg/dl
[2016-09-01] MEDS ORDERED: SODIUM CHLORIDE 0.9% 1000ML 1,000 ML IV SCH (10:45)
[2016-09-01 11:40] VITALS: BP 122/80; PULSE 68; TEMP 36.7; O2SAT 97
[2016-09-01] MEDS: MULTIVITAMIN TAB PO SCH (12:22)
[2016-09-01 15:06] VITALS: BP 120/80; PULSE 70; TEMP 36.7; O2SAT 97
[2016-09-01 17:50] LABS: BUN/CREATININE RATIO 17.5 (10-20); CALCIUM 9.1 mg/dl (8.5-10.1); CREATININE 0.88 mg/dl (0.60-1.20); POTASSIUM 4.9 mmol/L (3.5-5.1)
[2016-09-01] MEDS: SENNA 8.6 MG TAB PO SCH (19:06)
[2016-09-01] MEDS: CeleBREX 200 MG CAP PO SCH (21:20)
[2016-09-01] MEDS: CITALOPRAM 40 MG TAB PO SCH (21:22)
[2016-09-01 22:52] VITALS: BP 133/69; PULSE 67; TEMP 36.5; O2SAT 97
[2016-09-02] MEDS: ACETAMINOPHEN 500 MG TAB PO SCH (05:54)
[2016-09-02 06:51] VITALS: BP 128/70; PULSE 55; TEMP 36.6; O2SAT 97
--- NOTE | 2016-09-02 07:46 | Orthopedic Progress Note ---
Orthopedic Progress Note Date of Service Sep 02, 2016. Subjective Post OP Day: 2 Reports: feeling well Objective calves soft nontender, N/V intact, dressing C/D/I (Silverlon in place), toes mobile Date Time Temp Pulse Resp B/P (MAP) Pulse Ox O2 Delivery O2 Flow Rate FiO2 09/02/16 06:51 36.6 55 16 128/70 (89) 97 Room Air 09/01/16 22:52 36.5 67 16 133/69 (90) 97 Room Air 09/01/16 19:20 Room Air 09/01/16 15:45 Room Air 09/01/16 15:06 36.7 70 15 120/80 (93) 97 Room Air 09/01/16 11:40 36.7 68 16 122/80 (94) 97 Room Air 09/01/16 08:36 96 Room Air 09/01/16 08:18 36.8 67 14 112/70 (84) 96 Room Air Assessment & Plan Assessment: 70 yo female stable POD #2 s/p right TKA, footdrop resolved Plan: 1. Med management 2. DVT prophylaxis- ASA, TEDs, SCDs 3. PT/OT 4. D/C planning- home w/ HH
[2016-09-02] MEDS ORDERED: OXYSR10 PO (07:48)
[2016-09-02] MEDS ORDERED: ASPEC81 PO (07:48)
[2016-09-02] MEDS ORDERED: RXC5 PO (07:48)
[2016-09-02] MEDS ORDERED: CLB200 PO (07:48)
[2016-09-02] MEDS ORDERED: ACET-1138 PO (07:48)
[2016-09-02 08:18] VITALS: BP 128/70; PULSE 55; TEMP 36.6; O2SAT 97
[2016-09-02] MEDS: OXYCODONE HCL IR 5 MG TAB (IMMEDIATE RELEASE) PO PRN (08:26)
[2016-09-02] MEDS: OXYCODONE HCL 10 MG TABCR (OXYCONTIN) PO SCH (08:26)
[2016-09-02] MEDS: CHOLECALCIFEROL 1000 INTER.UNIT TAB PO SCH (08:27)
[2016-09-02] MEDS: VITAMIN B COMPLEX TAB PO SCH (08:27)
[2016-09-02] MEDS: LOSARTAN POTASSIUM 50 MG TAB PO SCH (08:27)
[2016-09-02] MEDS: ASPIRIN 81 MG ECTAB PO SCH (08:28)
[2016-09-02] MEDS: BISOPROLOL FUMARATE 10 MG TAB PO SCH (08:28)
[2016-09-02] MEDS: DOCUSATE SODIUM 100 MG CAP PO SCH (08:28)
[2016-09-02] MEDS: PANTOprazole SOD 40 MG TAB PO SCH (08:29)
[2016-09-02] MEDS: MULTIVITAMIN TAB PO SCH (08:29)
[2016-09-02] MEDS: AMLODIPINE BESYLATE 5 MG TAB PO SCH (08:29)
[2016-09-02] MEDS: ATORVASTATIN 20 MG TAB PO SCH (08:30)
[2016-09-02] MEDS: CeleBREX 200 MG CAP PO SCH (08:30)
[2016-09-02] MEDS: INSULIN ASPART 100 UNITS/ML 3 ML PEN SC SCH (09:41)
--- NOTE | 2016-09-10 11:47 | Discharge Summary ---
Orthopedic Discharge Summary Admission Date/Reason Aug 31, 2016 at 07:25 Right Knee Osteoarthritis. Discharge Date/Disposition Sep 02, 2016 Home with services Diagnosis Principal Diagnosis: right knee osteoarthritis Procedure(s) Performed Right TKA Consultations Medicine Medication Reconciliation New Medications: Acetaminophen (Tylenol Extra Strength) 500 Mg Tab 1000 MG PO Q8H for 30 Days, TAB Aspirin (Aspirin EC Low Dose) 81 Mg Ectab 81 MG PO BID for 30 Days Celecoxib (Celebrex) 200 Mg Cap 200 MG PO BID, #60 CAP Oxycodone HCl (Oxycontin) 10 Mg Tabcr 10 MG PO Q12, #20 Oxycodone HCl (Oxycodone HCl) 5 Mg Tab 5-10 MG PO Q4-6 PRN for Pain, #60 TAB Continued Medications: Amlodipine (Norvasc) 5 Mg Tab 5 MG PO QAM, TAB Atorvastatin (Lipitor) 40 Mg Tab 40 MG PO QAM, TAB B-Complex Vitamins (Vitamin B Complex) 1 Tab Tab 1 TAB PO QAM Bisoprolol Fumarate (Zebeta) 10 Mg Tab 10 MG PO QAM Cholecalciferol (Vitamin D3) 2,000 Unit Tab 1 TAB PO QAM for 90 Days, #90 TAB 3 Refills Cholestyramine (Bulk) (Cholestyramine) 1 Pow Pow 1 DOSE PO Q2D AM Citalopram Hydrobromide (Celexa) 40 Mg Tab 40 MG PO HS, TAB Dicyclomine Hcl (Bentyl) 20 Mg Tab 20 MG PO QID PRN for RN, TAB Lorazepam (Ativan) 1 Mg Tab 1 MG PO PRN, TAB Losartan Potassium (Cozaar) 50 Mg Tab 50 MG PO QAM, TAB Metformin Hcl (Glucophage) 500 Mg Tab 500 MG PO QAM, TAB Omeprazole (Prilosec) 20 Mg Capcr 20 MG PO QAM, CAP Ranitidine (Zantac) 150 Mg Tab 150 MG PO PRN, TAB [Ketoconazole 2% Sham] () 1 DOSE TOP PRN Discontinued Medications: Meloxicam (Mobic) 7.5 Mg Tab 15 MG PO PRN, TAB [Celebrex] () 1 DOSE PO UD NEW RX-HASN'T FILLED YET Admission Physical Exam As per Admitting History & Physical. Hospital Course The patient was admitted on .05.18 and underwent a right TKA. She progressed well on POD #1 and POD #2 with PT and with pain control. On POD #2, she continued to do well and was discharged home with home health on 09.02.16. Discharge Instructions Please refer to the electronic Patient Visit Report (Discharge Instructions) for additional information. ACTIVITY RECOMMENDATIONS: SELF CARE INSTRUCTIONS AFTER TOTAL KNEE REPLACEMENT A. You may need to continue a physical therapy program after discharge from the hospital. There are several options available to you. Your doctor will assist you in selecting the best one for you. 1. An out-patient facility 2 to 3 times a week for therapy or home therapy. 2. Continue working on all exercises taught to you in the hospital. Your goals should be to increase bending of your knee to 90 degrees and beyond and to fully straighten your knee. B. You may progress at your own pace from walking with a walker or crutches to a cane; then to no assistive devices. C. Make walking a part of your daily routine. Be up as much as comfortable with rest periods throughout the day. Rest with leg elevation is very important. Use the ice wrap frequently for the first 3-4 weeks. D. There are no restrictions on activities. You may ride in a car, shop, participate in first dyer and all social activities. E. Wear the long elastic stockings (MARY hose) 20 hours a day for one month after surgery. They can be removed several times a day for laundering and for a bath. F. Silverlon- This is a large adhesive bandage that contains silver ions. This helps your incision heal by fighting off bacteria and protecting it from the outside environment. You are permitted to shower with this dressing. This will remain on your incision for 7 days and then should be removed. Some visible blood or drainage through the dressing window is normal. If there is significant drainage or leaking noted before the 7 days notify your doctor's office immediately. Once removed, keep incision clean and dry. If there is any drainage or redness noted, please call your surgeon. SPECIAL CARE INSTRUCTIONS: VERY IMPORTANT TO READ AND REVIEW A. Take Aspirin (blood thinning medications) as directed by your doctor. If on Coumadin, have a pro-time (blood test) drawn according to your doctor's instructions. This will tell the doctor how well the Coumadin is thinning your blood. B. There are a few signs you need to watch for after you are home. Call [facility] if you notice any of the followin. Increased severe knee pain. Some pain is expected especially when you exercise. 2. Increased swelling in your leg or knee; pain or swelling of the calf muscle in either lower leg. 3. Any fluid drainage from the incision. 4. Shortness of breath or chest pain. C. Please call [facility] at if you have any concerns or questions about your operation or recovery. The doctor or his nurse will return your call promptly. D. You must take antibiotics before dental work, bladder, bowel or other surgery. Your doctor will provide you with a permanent care to carry describing this precaution. * CALL IF INCREASED PAIN, REDNESS, DRAINAGE OR FEVER GREATER THAT 101 F. * WEAR MARY HOSE 20 HOURS PER DAY FOR 4 WEEKS. FOLLOW UP VISIT: If appointment is not already scheduled: Please call [facility] to make a follow-up appointment for 2 weeks after your surgery to have sharlene removed at .
== END 2016-09-02 11:37 | disposition home health service (06) | DRG 470 ==
LOC: C.ACU 06:42 → C.3E 07:25 → ENRESERV 11:28
PROVIDERS: ADMIT Orthopaedic Surgery Sports Medicine; ATTEND Orthopaedic Surgery Sports Medicine
PROC: 0M8 Bursae and Ligaments, Division (ICD-10-PCS; principal; 2016-08-31 08:30)
PROC: 0SRC0J9 Replacement of Right Knee Joint with Synthetic Substitute, Cemented, Open Approach (ICD-10-PCS; principal; 2016-08-31 08:30)
DX: M17.11 Unilateral primary osteoarthritis, right knee (principal); M21.161 Varus deformity, not elsewhere classified, right knee; I10 Essential (primary) hypertension; E11.9 Type 2 diabetes mellitus without complications; F32.9 Major depressive disorder, single episode, unspecified; E66.9 Obesity, unspecified; E78.5 Hyperlipidemia, unspecified; F41.9 Anxiety disorder, unspecified; K58.9 Irritable bowel syndrome, unspecified; E88.81 Metabolic syndrome and other insulin resistance; Z68.30 Body mass index [BMI] 30.0-30.9, adult